=== PATIENT | male | born 1955 | race Two or more races ===

== ENCOUNTER → 2025-01-06 | Day surgery (SDC) | payer MEDICARE, BC ==
[~2025-01-06] VITALS: Ht 182.9 cm; Wt 120.7 kg
[2025-01-06] VITALS (7 sets, daily range): BP systolic 132–179; BP diastolic 77–140; PULSE 46–59; RESP 10–14; TEMP 98; O2SAT 95–98
[~2025-01-06] MED LIST: ALBUAER3 IN; BUDE1AER4 IN; DILT60TA28 PO; EZET10TA22 PO; HYDR-4798 PO; LOSA-535 PO; MAGN400T40 PO; METO-6 PO; MONT5CHW12 PO; OMEP20TA PO; PRIM125T PO; SERT-206 PO; SIMV40TA42 PO; TAMS-35 PO; WARF-113 PO
[2025-01-06] MEDS: IODIXANOL 320MG/ML 100ML BTL IV ONE ×2 (07:24→08:59)
[2025-01-06] MEDS: HEPARIN SODIUM (PORCINE) 5000 UNITS/ML 1ML VIAL ONE (07:46)
[2025-01-06] MEDS: ANGIOMAX 250 MG VIAL IV ONE (07:46)
[2025-01-06] MEDS: fentaNYL CITRATE 100 MCG/2 ML VL ONE (07:47)
[2025-01-06] MEDS: VERAPAMIL 2.5MG/ML INJ 2ML VIAL IV ONE (07:47)
[2025-01-06] MEDS: MIDAZOLAM HCL 2MG/2ML 2ml VIAL (1mg/ml) ONE (07:47)
[2025-01-06] MEDS: SODIUM CHL 0.9% 0 ML ONE (07:48)
[2025-01-06] MEDS: LIDOCAINE 2%HCL (LOCAL ANESTH.) INJ 20ML MDV ONE (07:48)
--- NOTE | 2025-01-06 08:55 | DVHOP2 ---
Operative Report Procedures performed: Left heart catheterization and bilateral coronary angiogram Moderate sedation Diagnosis: No angiographic evidence for epicardial coronary artery disease. Tortuous LAD questions hypertensive heart disease. Normal EF with normal EDP Cardiac suggestion for management: Optimized medical therapy Lifestyle and risk factor modifications Findings: LVEF: 60% LVEDP: 11 mm Hg There was no transaortic valve pressure gradient Left main: Left main was coming off the left sinus of Valsalva. It was free of disease. Ramus intermedius: Ramus intermedius was a large caliber vessel which came off the left main. It was free of disease. LAD: LAD was a large caliber vessel which came off the left main. It provided a small diagonal. LAD throughout its course and branches was free of disease. LAD was tortuous questioning hypertensive heart disease. LCX: LCX was a medium-sized vessel which came off the left main. It provided medium-sized OM1 and OM2. LCX throughout its course and branches was free of disease. RCA: RCA was a large caliber vessel which came off the right sinus of Valsalva. It was a dominant vessel and provided RPDA/RPLS. RCA throughout its course and branches was free of disease. Presentation: Patient is a 69-year-old gentleman who presented to the office with shortness of breath. Past medical history includes paroxysmal AFib, old history of DVT, hypertension, carotid plaques, hyperlipidemia and positive history for diabetes and coronary artery disease. He uses [facility] as outpatient. He is ex-smoker. Echocardiogram of August 2024 revealed ejection fraction of 60-65%, borderline concentric left ventricular hypertrophy, mild biatrial enlargement, trace MR/TR, mild mitral annual calcification. Aortic root was mildly dilated. Nuclear stress test of October 2024 was abnormal and the patient was sent for cardiac catheterization. Procedure: After obtaining informed consent, the patient was brought to the pharmacy laboratory technician. He was prepped and draped in sterile fashion. We used right radial artery for access. 1 mg of Versed and 50 mcg of fentanyl were used for moderate sedation. Using Seldinger technique, the right radial artery was accessed and a 6 [place]zeri slender sheath was inserted into it. 2.5 mg of verapamil and 100 mcg of nitroglycerin were given as a cocktail into right radial sheath. 5000 units of heparin was given peripherally. A 5 [place] tiger 4 diagnostic catheter was used to perform left heart catheterization (obtaining pressures and performing left ventriculography) and bilateral coronary angiography. There was no indication for any transcatheter revascularization. Total bleeding was less than 10 mL. There was no dissection/hematoma/perforation. Patient tolerated the procedure with no complication. Fluoroscopy time: 2.8 minutes contrast: 40 mL of Visipaque DANE MOORE MD Jan 06, 2025 08:55
[2025-01-06] MEDS: ATROPINE SULF 1 MG/10ml SYR ONE (08:58)
== END | disposition home or self-care (01) ==
LOC: CATH 06:50
PROVIDERS: ATTEND Internal Medicine Cardiovascular Disease
DX: R07.89 Other chest pain (principal); I25.10 Atherosclerotic heart disease of native coronary artery without angina pectoris; E11.9 Type 2 diabetes mellitus without complications; E78.5 Hyperlipidemia, unspecified; I11.9 Hypertensive heart disease without heart failure; I34.81 Nonrheumatic mitral (valve) annulus calcification; I48.0 Paroxysmal atrial fibrillation; Z86.718 Personal history of other venous thrombosis and embolism; Z87.891 Personal history of nicotine dependence; I77.1 Stricture of artery; R06.09 Other forms of dyspnea; Z79.899 Other long term (current) drug therapy; R94.39 Abnormal result of other cardiovascular function study
CPT/HCPCS: 93458; C1894; J1644; J2250; J3010; J7030; Q9967; 99152